=== PATIENT | male | born 1940 | race Caucasian/White ===

== ENCOUNTER 2022-07-11 19:44 | Inpatient (IN) | payer MEDICARE ==
[~2022-07-11] VITALS: Ht 177.8 cm; Wt 104.3 kg
[~2022-07-11 19:44] MED LIST: DORZOLAMIDE HCL10 ML OP; DORZOLAMIDE-TIM10 ML OP; LATANOPROST2.5 ML OP; LEVAQUIN500 MG PO; LOSARTAN-HCTZ1 EAC2 PO; SULFAMETHOXAZO1 EAC1 PO; VERAPAMIL ER240 M1 PO
[2022-07-11] MEDS ORDERED: SODIUM CHLORIDE 0.9% 1000ML 1,000 ML IV ONE (20:00)
[2022-07-11] MEDS ORDERED: PIPERACILLIN/TAZOBACTAM 4.5 GM in SODIUM CHLORIDE 0.9% 100 ML IV ONE (20:00)
[2022-07-11 20:06] LABS: BASOPHILS % 0.1 % (0.0-1.0); EOSINOPHILS # (AUTO) 0.2 (0.0-0.4); EOSINOPHILS % 1.1 % (0.0-6.0); HEMATOCRIT 31.3 % (38.2-49.6); HEMOGLOBIN 11.2 g/dL (14.0-18.0); LYMPHOCYTES # (AUTO) 0.5 (1.0-3.2); LYMPHOCYTES % 2.8 % (18.0-39.1); MEAN CORPUSCULAR HEMOGLOBIN 34.9 pg (28-32); MEAN CORPUSCULAR HGB CONC 35.8 g/dL (31-35); MEAN CORPUSCULAR VOLUME 97.5 fL (81-99); MONOCYTES # (AUTO) 1.2 (0.2-0.8); MONOCYTES % 6.5 % (4.4-11.3); NEUTROPHILS # (AUTO) 16.9 (2.1-6.9); NEUTROPHILS % 88.2 % (38.7-80.0); PLATELET COUNT 233 x10e3/uL (140-360); RED BLOOD COUNT 3.21 x10e6/uL (4.3-5.7); RED CELL DISTRIBUTION WIDTH 11.9 % (11.7-14.4)
[2022-07-11 20:20] LABS: INR 1.3; PROTHROMBIN TIME 17.3 seconds (11.9-14.5)
[2022-07-11 20:21] LABS: PARTIAL THROMBOPLASTIN TIME 37.2 seconds (23.8-35.5)
[2022-07-11 20:28] LABS: ALBUMIN 2.8 g/dL (3.5-5.0); ALBUMIN/GLOBULIN RATIO 0.7 (0.8-2.0); ANION GAP 16.5 mmol/L (8-16); CALCIUM 8.7 mg/dL (8.4-10.2); CREATININE, SERUM 1.39 mg/dL (0.72-1.25); POTASSIUM 3.5 mmol/L (3.5-5.1)
[2022-07-11] MEDS ORDERED: SODIUM CHLORIDE 0.9% 100 ML ONE (23:34)
[2022-07-11] MEDS ORDERED: PIPERACILLIN/TAZOBACTAM 4.5GM 4.5 GM VIAL ONE (23:34)
[2022-07-11] MEDS ORDERED: SODIUM CHLORIDE 0.9% 1000ML 1,000 ML ONE (23:34)
[2022-07-12 00:36] LABS: CLARITY,URINE CLEAR (CLEAR); COLOR,URINE AMBER (YELLOW); KETONES,URINE TRACE (NEGATIVE); LEUKOCYTE ESTERASE ,URINE NEGATIVE (NEGATIVE); NITRITE,URINE NEGATIVE (NEGATIVE); PROTEIN,URINE DIPSTICK NEGATIVE (NEGATIVE)
[2022-07-12 00:42] LABS: AMORPHOUS SEDIMENT,URINE FEW (FEW); BACTERIA,URINE FEW /HPF; EPITHELIAL CELLS,URINE FEW /LPF; RBC,URINE 0-5 /HPF (0-5); WBC,URINE (MAN) 0-5 /HPF (0-5)
[2022-07-12] MEDS ORDERED: IOPAMIDOL 370 MG/ML 100 ML INFUS..BTL INJ ONE (01:05)
[2022-07-12] MEDS ORDERED: Vancomycin IV 1 GM in SODIUM CHLORIDE 0.9% 250ML 250 ML IV STA (04:19)
[2022-07-12] MEDS ORDERED: ONDANSETRON HCL INJ 2MG/ML 2ML 2 MG/ML VIAL IV PRN (04:30)
[2022-07-12] MEDS ORDERED: Morphine 4mg INJECTION 4 MG/ML INJ IV PRN (04:30)
[2022-07-12] MEDS: SODIUM CHLORIDE 0.9% 1000ML 1,000 ML IV SCH ×3 (05:27→20:30)
[2022-07-12] MEDS ORDERED: Morphine 4mg INJECTION 4 MG/ML INJ ONE (12:24)
[2022-07-12 13:53] VITALS: BP 155/75
[2022-07-12] MEDS ORDERED: colace PO (13:57)
[2022-07-12] MEDS ORDERED: MULTIVITAMIN200 MCG PO (13:58)
[2022-07-12 14:02] VITALS: BP 155/75
[2022-07-12 14:03] VITALS: BP 155/75
[2022-07-12 14:15] VITALS: BP 155/75
[2022-07-12 16:08] VITALS: BP 126/54
[2022-07-12 20:00] VITALS: BP 133/55
[2022-07-12 21:58] LABS: % IRON SATURATION 17 % (15-50); IRON 39 ug/dL (65-175); TOTAL IRON BINDING CAPACITY 228 ug/dL (261-478); TRANSFERRIN 163 mg/dL (174-364)
[2022-07-12] MEDS ORDERED: MAGNESIUM HYDROXIDE 30 ML UDC PO ONE (22:45)
[2022-07-13] VITALS (7 sets, daily range): BP systolic 106–159; BP diastolic 55–75
[2022-07-13] MEDS: SODIUM CHLORIDE 0.9% 1000ML 1,000 ML IV SCH ×2 (04:30→12:49)
[2022-07-13 06:08] LABS: BASOPHILS # (AUTO) 0.1 (0.0-0.1); BASOPHILS % 0.4 % (0.0-1.0); EOSINOPHILS # (AUTO) 0.6 (0.0-0.4); EOSINOPHILS % 5.2 % (0.0-6.0); HEMATOCRIT 30.9 % (38.2-49.6); MEAN CORPUSCULAR HEMOGLOBIN 33.8 pg (28-32); MEAN CORPUSCULAR HGB CONC 35.6 g/dL (31-35); MEAN CORPUSCULAR VOLUME 95.1 fL (81-99); MONOCYTES # (AUTO) 1.8 (0.2-0.8); MONOCYTES % 16.1 % (4.4-11.3); NEUTROPHILS # (AUTO) 7.6 (2.1-6.9); NEUTROPHILS % 67.1 % (38.7-80.0); PLATELET COUNT 212 x10e3/uL (140-360); RED BLOOD COUNT 3.25 x10e6/uL (4.3-5.7); RED CELL DISTRIBUTION WIDTH 11.9 % (11.7-14.4)
[2022-07-13 06:37] LABS: ALBUMIN 2.4 g/dL (3.5-5.0); ALBUMIN/GLOBULIN RATIO 0.8 (0.8-2.0); CALCIUM 8.5 mg/dL (8.4-10.2); CREATININE, SERUM 0.78 mg/dL (0.72-1.25)
[2022-07-13] MEDS ORDERED: MAGNESIUM HYDROXIDE 30 ML UDC PO ONE (08:00)
[2022-07-13] MEDS: IRON SUCROSE 100 MG in SODIUM CHLORIDE 0.9% 100 ML IV SCH (09:00)
[2022-07-13] MEDS: FOLIC ACID 1 MG TAB PO SCH (09:00)
[2022-07-13] MEDS ORDERED: POTASSIUM CHLORIDE 20MEQ/100ML 100 ML IV ONE (12:00)
[2022-07-13] MEDS: LATANOPROST(OPTH) 2.5 ML BTL OP SCH (22:11)
[2022-07-13] MEDS: DORZOLAMIDE HCL (OPTH) 10 ML BOTTLE OP SCH (22:11)
[2022-07-14] VITALS (9 sets, daily range): BP systolic 156–192; BP diastolic 63–81
[2022-07-14] MEDS: SODIUM CHLORIDE 0.9% 1000ML 1,000 ML IV SCH (02:23)
[2022-07-14] MEDS ORDERED: POTASSIUM CHLORIDE 20 MEQ TAB CR PO ONE (08:16)
[2022-07-14] MEDS: IRON SUCROSE 100 MG in SODIUM CHLORIDE 0.9% 100 ML IV SCH (08:16)
[2022-07-14] MEDS: FOLIC ACID 1 MG TAB PO SCH (08:19)
[2022-07-14] MEDS ORDERED: LOSARTAN POTASSIUM 25 MG TAB PO SCH (09:00)
[2022-07-14] MEDS ORDERED: LIDOCAINE 4% PATCH TP SCH (09:00)
[2022-07-14] MEDS ORDERED: CALCIUM CARBONATE 500 MG CHEWABLE TABS PO PRN (11:00)
[2022-07-14 11:42] LABS: ANION GAP 18.5 mmol/L (8-16); CALCIUM 8.4 mg/dL (8.4-10.2); CREATININE, SERUM 0.74 mg/dL (0.72-1.25); MAGNESIUM 2.1 MG/DL (1.3-2.1); POTASSIUM 3.5 mmol/L (3.5-5.1)
[2022-07-14 11:56] LABS: BASOPHILS # (AUTO) 0.1 (0.0-0.1); BASOPHILS % 0.5 % (0.0-1.0); EOSINOPHILS # (AUTO) 0.1 (0.0-0.4); HEMATOCRIT 30.7 % (38.2-49.6); HEMOGLOBIN 11.2 g/dL (14.0-18.0); LYMPHOCYTES # (AUTO) 1.5 (1.0-3.2); LYMPHOCYTES % 14.1 % (18.0-39.1); MEAN CORPUSCULAR HEMOGLOBIN 34.7 pg (28-32); MEAN CORPUSCULAR HGB CONC 36.5 g/dL (31-35); MONOCYTES # (AUTO) 1.2 (0.2-0.8); MONOCYTES % 11.3 % (4.4-11.3); NEUTROPHILS # (AUTO) 7.4 (2.1-6.9); NEUTROPHILS % 67.3 % (38.7-80.0); PLATELET COUNT 210 x10e3/uL (140-360); RED BLOOD COUNT 3.23 x10e6/uL (4.3-5.7); RED CELL DISTRIBUTION WIDTH 11.9 % (11.7-14.4)
[2022-07-14 12:37] LABS: BAND NEUTROPHILS % (MANUAL) 1 %; EOSINOPHILS % (MANUAL) 1 % (0-7); LYMPHOCYTES % (MANUAL) 19 % (19-48); METAMYELOCYTES % (MANUAL) 4 % (0-0); MONOCYTES % (MANUAL) 7 % (3.4-9.0); MYELOCYTES % (MANUAL) 1 % (0-0); NEUTROPHILS % (MANUAL) 67 % (40-74); PLATELET ESTIMATE ADEQUATE; PLATELET MORPHOLOGY COMMENT NORMAL
[2022-07-14] MEDS: LOSARTAN POTASSIUM 25 MG TAB PO SCH (17:59)
[2022-07-14] MEDS ORDERED: RISPERIDONE 1 MG TAB PO ONE (21:00)
[2022-07-14] MEDS: ACETAMINOPHEN 325 MG TAB PO PRN (21:22)
[2022-07-14] MEDS: DORZOLAMIDE HCL (OPTH) 10 ML BOTTLE OP SCH (23:44)
[2022-07-14] MEDS: LATANOPROST(OPTH) 2.5 ML BTL OP SCH (23:44)
[2022-07-15] VITALS (8 sets, daily range): BP systolic 120–185; BP diastolic 56–77
[2022-07-15 06:18] LABS: BASOPHILS # (AUTO) 0.1 (0.0-0.1); BASOPHILS % 0.8 % (0.0-1.0); EOSINOPHILS # (AUTO) 0.2 (0.0-0.4); EOSINOPHILS % 1.7 % (0.0-6.0); HEMATOCRIT 31.5 % (38.2-49.6); HEMOGLOBIN 11.4 g/dL (14.0-18.0); LYMPHOCYTES # (AUTO) 1.6 (1.0-3.2); LYMPHOCYTES % 12.7 % (18.0-39.1); MEAN CORPUSCULAR HEMOGLOBIN 34.5 pg (28-32); MEAN CORPUSCULAR HGB CONC 36.2 g/dL (31-35); MEAN CORPUSCULAR VOLUME 95.5 fL (81-99); MONOCYTES # (AUTO) 1.4 (0.2-0.8); MONOCYTES % 11.4 % (4.4-11.3); NEUTROPHILS % 65.9 % (38.7-80.0); PLATELET COUNT 227 x10e3/uL (140-360); RED CELL DISTRIBUTION WIDTH 11.8 % (11.7-14.4)
[2022-07-15 06:41] LABS: ANION GAP 17.6 mmol/L (8-16); CALCIUM 8.8 mg/dL (8.4-10.2); CREATININE, SERUM 0.8 mg/dL (0.72-1.25); POTASSIUM 4.6 mmol/L (3.5-5.1)
[2022-07-15] MEDS: LOSARTAN POTASSIUM 25 MG TAB PO SCH ×2 (09:04→16:46)
[2022-07-15] MEDS: FOLIC ACID 1 MG TAB PO SCH (09:17)
[2022-07-15 10:38] LABS: CHOL/HDL RATIO 8.5 (3.9-4.7)
[2022-07-15] MEDS ORDERED: HYDRALAZINE HCL 20 MG/ML VIAL IV PRN (10:45)
[2022-07-15] MEDS ORDERED: LOSARTAN POTASSIUM 100 MG TAB PO SCH (10:45)
[2022-07-15] MEDS ORDERED: HYDROCHLOROTHIAZIDE 25 MG TAB PO SCH (10:45)
[2022-07-15 10:58] LABS: THYROID STIMULATING HORMONE 0.997 uIU/mL (0.350-4.940)
[2022-07-15] MEDS: IRON SUCROSE 100 MG in SODIUM CHLORIDE 0.9% 100 ML IV SCH (12:46)
[2022-07-15] MEDS: LATANOPROST(OPTH) 2.5 ML BTL OP SCH (21:00)
[2022-07-15] MEDS: DORZOLAMIDE HCL (OPTH) 10 ML BOTTLE OP SCH (21:00)
[2022-07-16] VITALS (8 sets, daily range): BP systolic 99–189; BP diastolic 60–104
[2022-07-16] MEDS: ACETAMINOPHEN 325 MG TAB PO PRN (03:30)
[2022-07-16 08:27] LABS: BASOPHILS # (AUTO) 0.1 (0.0-0.1); BASOPHILS % 0.7 % (0.0-1.0); EOSINOPHILS # (AUTO) 0.2 (0.0-0.4); EOSINOPHILS % 1.1 % (0.0-6.0); HEMATOCRIT 34.3 % (38.2-49.6); LYMPHOCYTES # (AUTO) 1.9 (1.0-3.2); LYMPHOCYTES % 11.5 % (18.0-39.1); MEAN CORPUSCULAR HEMOGLOBIN 34.2 pg (28-32); MEAN CORPUSCULAR VOLUME 97.7 fL (81-99); MONOCYTES # (AUTO) 1.8 (0.2-0.8); NEUTROPHILS % 67.6 % (38.7-80.0); PLATELET COUNT 230 x10e3/uL (140-360); RED BLOOD COUNT 3.51 x10e6/uL (4.3-5.7); RED CELL DISTRIBUTION WIDTH 11.6 % (11.7-14.4)
[2022-07-16 08:42] LABS: ANION GAP 17.3 mmol/L (8-16); CALCIUM 8.7 mg/dL (8.4-10.2); CREATININE, SERUM 0.76 mg/dL (0.72-1.25); PHOSPHORUS 2.8 MG/DL (2.3-4.7); POTASSIUM 3.3 mmol/L (3.5-5.1)
[2022-07-16] MEDS ORDERED: VERAPAMIL HCL 240 MG PO SCH (09:00)
[2022-07-16] MEDS: DOCUSATE SODIUM 100 MG CAP PO SCH (10:01)
[2022-07-16] MEDS: FOLIC ACID 1 MG TAB PO SCH (10:01)
[2022-07-16] MEDS: MULTIVITAMINS/MINERALS TAB PO SCH (10:01)
[2022-07-16] MEDS: LOSARTAN POTASSIUM 25 MG TAB PO SCH ×2 (10:01→15:23)
[2022-07-16] MEDS: METOPROLOL TARTRATE 25 MG TAB PO SCH ×2 (10:30→15:24)
[2022-07-16] MEDS ORDERED: POTASSIUM CHLORIDE 20 MEQ TAB CR PO SCH (10:30)
[2022-07-16] MEDS: IRON SUCROSE 100 MG in SODIUM CHLORIDE 0.9% 100 ML IV SCH (11:35)
[2022-07-16] MEDS ORDERED: POTASSIUM CHLORIDE 20MEQ/100ML 200 ML IV ONE (12:30)
[2022-07-16 18:02] LABS: ABG HCO3 21 mmol/L (22-26); ABG PCO2 28 mmHg (35-45); ABG PH 7.48 (7.35-7.45); ABG PO2 79 mmHg (80-105); ABG TCO2 22
[2022-07-16] MEDS: Vancomycin IV 1 GM in SODIUM CHLORIDE 0.9% 250ML 250 ML IV SCH (18:18)
[2022-07-16] MEDS ORDERED: LORAZEPAM INJ 2 MG/ML VIAL IV ONE (18:20)
[2022-07-16] MEDS: LATANOPROST(OPTH) 2.5 ML BTL OP SCH (20:48)
[2022-07-16] MEDS: DORZOLAMIDE HCL (OPTH) 10 ML BOTTLE OP SCH (20:48)
[2022-07-17] MEDS: Vancomycin IV 1 GM in SODIUM CHLORIDE 0.9% 250ML 250 ML IV SCH (05:30)
[2022-07-17 05:55] LABS: BASOPHILS # (AUTO) 0.1 (0.0-0.1); BASOPHILS % 0.8 % (0.0-1.0); EOSINOPHILS # (AUTO) 0.3 (0.0-0.4); HEMATOCRIT 32.6 % (38.2-49.6); HEMOGLOBIN 11.5 g/dL (14.0-18.0); LYMPHOCYTES # (AUTO) 2.1 (1.0-3.2); LYMPHOCYTES % 12.1 % (18.0-39.1); MEAN CORPUSCULAR HEMOGLOBIN 34.1 pg (28-32); MEAN CORPUSCULAR HGB CONC 35.3 g/dL (31-35); MEAN CORPUSCULAR VOLUME 96.7 fL (81-99); MONOCYTES # (AUTO) 1.9 (0.2-0.8); MONOCYTES % 10.9 % (4.4-11.3); NEUTROPHILS # (AUTO) 11.3 (2.1-6.9); NEUTROPHILS % 66.3 % (38.7-80.0); PLATELET COUNT 242 x10e3/uL (140-360); RED BLOOD COUNT 3.37 x10e6/uL (4.3-5.7)
[2022-07-17 06:00] VITALS: BP 130/101
[2022-07-17 06:20] LABS: ANION GAP 14.4 mmol/L (8-16); CALCIUM 8.6 mg/dL (8.4-10.2); CREATININE, SERUM 0.74 mg/dL (0.72-1.25); MAGNESIUM 1.9 MG/DL (1.3-2.1); PHOSPHORUS 3.4 MG/DL (2.3-4.7); POTASSIUM 3.4 mmol/L (3.5-5.1)
[2022-07-17] MEDS: METOPROLOL TARTRATE 25 MG TAB PO SCH ×2 (09:00→17:00)
[2022-07-17] MEDS: MULTIVITAMINS/MINERALS TAB PO SCH (09:00)
[2022-07-17] MEDS: DOCUSATE SODIUM 100 MG CAP PO SCH (09:00)
[2022-07-17] MEDS: FOLIC ACID 1 MG TAB PO SCH (09:00)
[2022-07-17 09:13] VITALS: BP 104/87
[2022-07-17] MEDS ORDERED: D5.45%NS/KCL 20MEQ 1,000 ML IV ONE (10:00)
[2022-07-17] MEDS: CEFTRIAXONE 2 GM in SODIUM CHLORIDE 0.9% 100 ML IV SCH (10:00)
[2022-07-17] MEDS: POTASSIUM CHLORIDE 20MEQ/100ML 100 ML IV SCH ×3 (11:00→15:00)
[2022-07-17] MEDS ORDERED: MAGNESIUM SULFATE 2GM/50ML 50 ML IV ONE (11:00)
[2022-07-17] MEDS: IRON SUCROSE 100 MG in SODIUM CHLORIDE 0.9% 100 ML IV SCH (11:21)
[2022-07-17 12:38] VITALS: BP 171/64
[2022-07-17] MEDS: METRONIDAZOLE 500 MG TAB PO SCH ×2 (16:15→21:34)
[2022-07-17 16:16] VITALS: BP 157/66
[2022-07-17] MEDS: NYSTATIN/TRIAMCINOLONE 15 GM CR TOP SCH (17:50)
[2022-07-17] MEDS ORDERED: ONDANSETRON HCL 4 MG ORAL DISINTEGRATING TAB PO PRN (19:30)
[2022-07-17 20:00] VITALS: BP 151/64
[2022-07-17 21:00] VITALS: BP 151/64
[2022-07-17] MEDS: DORZOLAMIDE HCL (OPTH) 10 ML BOTTLE OP SCH (21:34)
[2022-07-17] MEDS: LATANOPROST(OPTH) 2.5 ML BTL OP SCH (21:34)
[2022-07-18 05:52] LABS: BASOPHILS # (AUTO) 0.1 (0.0-0.1); BASOPHILS % 0.5 % (0.0-1.0); EOSINOPHILS # (AUTO) 0.6 (0.0-0.4); EOSINOPHILS % 3.6 % (0.0-6.0); HEMATOCRIT 32.6 % (38.2-49.6); HEMOGLOBIN 10.9 g/dL (14.0-18.0); LYMPHOCYTES # (AUTO) 1.8 (1.0-3.2); LYMPHOCYTES % 10.5 % (18.0-39.1); MEAN CORPUSCULAR HEMOGLOBIN 33.7 pg (28-32); MEAN CORPUSCULAR HGB CONC 33.4 g/dL (31-35); MEAN CORPUSCULAR VOLUME 100.9 fL (81-99); MONOCYTES # (AUTO) 1.7 (0.2-0.8); MONOCYTES % 10.1 % (4.4-11.3); NEUTROPHILS % 70.3 % (38.7-80.0); PLATELET COUNT 227 x10e3/uL (140-360); RED BLOOD COUNT 3.23 x10e6/uL (4.3-5.7); RED CELL DISTRIBUTION WIDTH 12.1 % (11.7-14.4)
[2022-07-18] MEDS: METRONIDAZOLE 500 MG TAB PO SCH ×3 (06:32→20:29)
[2022-07-18 06:37] LABS: ANION GAP 12.2 mmol/L (8-16); CALCIUM 8.2 mg/dL (8.4-10.2); CREATININE, SERUM 0.69 mg/dL (0.72-1.25); MAGNESIUM 2.5 MG/DL (1.3-2.1); PHOSPHORUS 2.5 MG/DL (2.3-4.7); POTASSIUM 3.2 mmol/L (3.5-5.1)
[2022-07-18 08:51] VITALS: BP 154/79
[2022-07-18] MEDS: METOPROLOL TARTRATE 25 MG TAB PO SCH ×2 (09:00→17:00)
[2022-07-18] MEDS: LOSARTAN POTASSIUM 25 MG TAB PO SCH (09:00)
[2022-07-18] MEDS: DOCUSATE SODIUM 100 MG CAP PO SCH (09:00)
[2022-07-18] MEDS: NYSTATIN/TRIAMCINOLONE 15 GM CR TOP SCH ×2 (09:00→17:00)
[2022-07-18] MEDS: MULTIVITAMINS/MINERALS TAB PO SCH (09:00)
[2022-07-18] MEDS: FOLIC ACID 1 MG TAB PO SCH (09:00)
[2022-07-18] MEDS: CEFTRIAXONE 2 GM in SODIUM CHLORIDE 0.9% 100 ML IV SCH (10:00)
[2022-07-18] MEDS: POTASSIUM CHLORIDE 20 MEQ TAB CR PO SCH ×2 (12:00→18:00)
[2022-07-18 12:18] VITALS: BP 148/74
[2022-07-18 16:46] VITALS: BP 155/62
[2022-07-18 20:15] VITALS: BP 148/74
[2022-07-18] MEDS: LATANOPROST(OPTH) 2.5 ML BTL OP SCH (20:29)
[2022-07-18] MEDS: DORZOLAMIDE HCL (OPTH) 10 ML BOTTLE OP SCH (20:29)
[2022-07-19] VITALS: BP 160/71
[2022-07-19 06:31] LABS: BASOPHILS # (AUTO) 0.1 (0.0-0.1); BASOPHILS % 0.4 % (0.0-1.0); EOSINOPHILS # (AUTO) 0.4 (0.0-0.4); EOSINOPHILS % 3.1 % (0.0-6.0); HEMOGLOBIN 10.8 g/dL (14.0-18.0); LYMPHOCYTES # (AUTO) 1.7 (1.0-3.2); LYMPHOCYTES % 12.5 % (18.0-39.1); MEAN CORPUSCULAR HEMOGLOBIN 34.6 pg (28-32); MEAN CORPUSCULAR HGB CONC 33.8 g/dL (31-35); MEAN CORPUSCULAR VOLUME 102.6 fL (81-99); MONOCYTES # (AUTO) 1.4 (0.2-0.8); MONOCYTES % 10.3 % (4.4-11.3); NEUTROPHILS # (AUTO) 9.7 (2.1-6.9); NEUTROPHILS % 70.3 % (38.7-80.0); PLATELET COUNT 208 x10e3/uL (140-360); RED BLOOD COUNT 3.12 x10e6/uL (4.3-5.7); RED CELL DISTRIBUTION WIDTH 12.6 % (11.7-14.4)
[2022-07-19] MEDS: METRONIDAZOLE 500 MG TAB PO SCH ×2 (06:39→16:41)
[2022-07-19 06:51] LABS: ANION GAP 11.7 mmol/L (8-16); CALCIUM 8.2 mg/dL (8.4-10.2); CREATININE, SERUM 0.73 mg/dL (0.72-1.25); POTASSIUM 3.7 mmol/L (3.5-5.1)
[2022-07-19 07:53] VITALS: BP 162/75
[2022-07-19 08:59] VITALS: BP 162/75
[2022-07-19] MEDS: DOCUSATE SODIUM 100 MG CAP PO SCH (09:00)
[2022-07-19] MEDS: LOSARTAN POTASSIUM 25 MG TAB PO SCH (09:26)
[2022-07-19] MEDS: FOLIC ACID 1 MG TAB PO SCH (09:26)
[2022-07-19] MEDS: MULTIVITAMINS/MINERALS TAB PO SCH (09:26)
[2022-07-19] MEDS: CEFTRIAXONE 2 GM in SODIUM CHLORIDE 0.9% 100 ML IV SCH (09:27)
[2022-07-19] MEDS: METOPROLOL TARTRATE 25 MG TAB PO SCH ×2 (09:27→16:42)
[2022-07-19 11:25] VITALS: BP 155/71
[2022-07-19 15:20] VITALS: BP 158/70
[2022-07-19 20:00] VITALS: BP 169/71
[2022-07-19] MEDS: DORZOLAMIDE HCL (OPTH) 10 ML BOTTLE OP SCH (21:00)
[2022-07-19] MEDS: LATANOPROST(OPTH) 2.5 ML BTL OP SCH (21:00)
[2022-07-20] VITALS: BP 162/68
[2022-07-20] MEDS: METRONIDAZOLE 500 MG TAB PO SCH ×4 (01:03→21:55)
[2022-07-20 04:00] VITALS: BP 153/68
[2022-07-20 06:33] LABS: BASOPHILS # (AUTO) 0.1 (0.0-0.1); BASOPHILS % 0.3 % (0.0-1.0); EOSINOPHILS # (AUTO) 0.4 (0.0-0.4); EOSINOPHILS % 2.9 % (0.0-6.0); HEMATOCRIT 31.5 % (38.2-49.6); HEMOGLOBIN 10.9 g/dL (14.0-18.0); LYMPHOCYTES # (AUTO) 1.6 (1.0-3.2); LYMPHOCYTES % 10.3 % (18.0-39.1); MEAN CORPUSCULAR HEMOGLOBIN 34.7 pg (28-32); MEAN CORPUSCULAR HGB CONC 34.6 g/dL (31-35); MEAN CORPUSCULAR VOLUME 100.3 fL (81-99); MONOCYTES # (AUTO) 1.3 (0.2-0.8); MONOCYTES % 8.8 % (4.4-11.3); NEUTROPHILS # (AUTO) 11.4 (2.1-6.9); PLATELET COUNT 203 x10e3/uL (140-360); RED BLOOD COUNT 3.14 x10e6/uL (4.3-5.7); RED CELL DISTRIBUTION WIDTH 12.9 % (11.7-14.4)
[2022-07-20 06:44] LABS: ANION GAP 15.6 mmol/L (8-16); CALCIUM 8.1 mg/dL (8.4-10.2); CREATININE, SERUM 0.71 mg/dL (0.72-1.25); POTASSIUM 3.6 mmol/L (3.5-5.1)
[2022-07-20 07:43] VITALS: BP 144/80
[2022-07-20] MEDS ORDERED: BACLOFEN 10 MG TAB PO PRN (09:00)
[2022-07-20] MEDS: METOPROLOL TARTRATE 25 MG TAB PO SCH ×2 (09:39→17:53)
[2022-07-20] MEDS: FOLIC ACID 1 MG TAB PO SCH (09:39)
[2022-07-20] MEDS: MULTIVITAMINS/MINERALS TAB PO SCH (09:39)
[2022-07-20] MEDS: DOCUSATE SODIUM 100 MG CAP PO SCH (09:40)
[2022-07-20] MEDS: CEFTRIAXONE 2 GM in SODIUM CHLORIDE 0.9% 100 ML IV SCH (09:40)
[2022-07-20] MEDS: LOSARTAN POTASSIUM 25 MG TAB PO SCH (09:40)
[2022-07-20] MEDS: IRON-VITAMIN-MINERAL CAPSULE PO SCH ×2 (09:50→17:52)
[2022-07-20 11:13] VITALS: BP 151/63
[2022-07-20 15:33] VITALS: BP 148/65
[2022-07-20] MEDS: ENOXAPARIN SOD INJ 40 MG/0.4 ML SYR SC SCH (17:52)
[2022-07-20 20:00] VITALS: BP 162/70
[2022-07-20] MEDS: DORZOLAMIDE HCL (OPTH) 10 ML BOTTLE OP SCH (21:59)
[2022-07-20] MEDS: LATANOPROST(OPTH) 2.5 ML BTL OP SCH (22:00)
[2022-07-21 00:17] VITALS: BP 161/58
[2022-07-21 04:00] VITALS: BP 151/62
[2022-07-21] MEDS: METRONIDAZOLE 500 MG TAB PO SCH ×3 (05:31→16:44)
[2022-07-21 06:38] LABS: BASOPHILS # (AUTO) 0.1 (0.0-0.1); BASOPHILS % 0.6 % (0.0-1.0); EOSINOPHILS # (AUTO) 0.5 (0.0-0.4); EOSINOPHILS % 4.2 % (0.0-6.0); HEMATOCRIT 31.1 % (38.2-49.6); HEMOGLOBIN 10.6 g/dL (14.0-18.0); LYMPHOCYTES # (AUTO) 1.4 (1.0-3.2); LYMPHOCYTES % 12.6 % (18.0-39.1); MEAN CORPUSCULAR HEMOGLOBIN 33.9 pg (28-32); MEAN CORPUSCULAR HGB CONC 34.1 g/dL (31-35); MEAN CORPUSCULAR VOLUME 99.4 fL (81-99); MONOCYTES # (AUTO) 1.1 (0.2-0.8); MONOCYTES % 10.4 % (4.4-11.3); NEUTROPHILS # (AUTO) 7.7 (2.1-6.9); NEUTROPHILS % 71.1 % (38.7-80.0); PLATELET COUNT 217 x10e3/uL (140-360); RED BLOOD COUNT 3.13 x10e6/uL (4.3-5.7); RED CELL DISTRIBUTION WIDTH 12.9 % (11.7-14.4)
[2022-07-21 06:53] LABS: ALBUMIN 2.2 g/dL (3.5-5.0); ALBUMIN/GLOBULIN RATIO 0.6 (0.8-2.0); ANION GAP 12.4 mmol/L (8-16); CALCIUM 8.3 mg/dL (8.4-10.2); CREATININE, SERUM 0.75 mg/dL (0.72-1.25); MAGNESIUM 2.1 MG/DL (1.3-2.1); POTASSIUM 3.4 mmol/L (3.5-5.1)
[2022-07-21] MEDS ORDERED: POTASSIUM CHLORIDE 10MEQ EA PO ONE (07:30)
[2022-07-21 08:00] VITALS: BP 151/62
[2022-07-21 08:31] VITALS: BP 137/60
[2022-07-21] MEDS: IRON-VITAMIN-MINERAL CAPSULE PO SCH ×2 (09:00→17:00)
[2022-07-21] MEDS: DOCUSATE SODIUM 100 MG CAP PO SCH (09:00)
[2022-07-21] MEDS: FOLIC ACID 1 MG TAB PO SCH (09:36)
[2022-07-21] MEDS: MULTIVITAMINS/MINERALS TAB PO SCH (09:37)
[2022-07-21] MEDS: METOPROLOL TARTRATE 25 MG TAB PO SCH ×2 (09:37→16:45)
[2022-07-21] MEDS: LOSARTAN POTASSIUM 25 MG TAB PO SCH (09:38)
[2022-07-21] MEDS: CEFTRIAXONE 2 GM in SODIUM CHLORIDE 0.9% 100 ML IV SCH (09:38)
[2022-07-21 15:15] VITALS: BP 159/60
[2022-07-21] MEDS: ENOXAPARIN SOD INJ 40 MG/0.4 ML SYR SC SCH (16:44)
[2022-07-21 20:00] VITALS: BP 160/60
[2022-07-21] MEDS: DORZOLAMIDE HCL (OPTH) 10 ML BOTTLE OP SCH (23:01)
[2022-07-21] MEDS: LATANOPROST(OPTH) 2.5 ML BTL OP SCH (23:01)
[2022-07-22 04:00] VITALS: BP 152/81
[2022-07-22] MEDS: METRONIDAZOLE 500 MG TAB PO SCH ×2 (05:13→14:17)
[2022-07-22 06:18] LABS: BASOPHILS # (AUTO) 0.1 (0.0-0.1); BASOPHILS % 0.6 % (0.0-1.0); EOSINOPHILS # (AUTO) 0.5 (0.0-0.4); EOSINOPHILS % 5.2 % (0.0-6.0); HEMOGLOBIN 10.7 g/dL (14.0-18.0); LYMPHOCYTES # (AUTO) 1.2 (1.0-3.2); LYMPHOCYTES % 13.7 % (18.0-39.1); MEAN CORPUSCULAR HEMOGLOBIN 34.2 pg (28-32); MEAN CORPUSCULAR HGB CONC 34.5 g/dL (31-35); MONOCYTES # (AUTO) 1.1 (0.2-0.8); MONOCYTES % 12.5 % (4.4-11.3); NEUTROPHILS % 67.1 % (38.7-80.0); PLATELET COUNT 237 x10e3/uL (140-360); RED BLOOD COUNT 3.13 x10e6/uL (4.3-5.7); RED CELL DISTRIBUTION WIDTH 12.8 % (11.7-14.4)
[2022-07-22 06:44] LABS: ANION GAP 16.2 mmol/L (8-16); CALCIUM 8.1 mg/dL (8.4-10.2); CREATININE, SERUM 0.71 mg/dL (0.72-1.25); MAGNESIUM 2.2 MG/DL (1.3-2.1); POTASSIUM 3.2 mmol/L (3.5-5.1)
[2022-07-22 07:58] VITALS: BP 167/66
[2022-07-22] MEDS: LOSARTAN POTASSIUM 25 MG TAB PO SCH (08:29)
[2022-07-22] MEDS: MULTIVITAMINS/MINERALS TAB PO SCH (08:29)
[2022-07-22] MEDS: CEFTRIAXONE 2 GM in SODIUM CHLORIDE 0.9% 100 ML IV SCH (08:29)
[2022-07-22] MEDS: DOCUSATE SODIUM 100 MG CAP PO SCH (08:29)
[2022-07-22] MEDS: IRON-VITAMIN-MINERAL CAPSULE PO SCH ×2 (08:30→17:16)
[2022-07-22] MEDS: METOPROLOL TARTRATE 25 MG TAB PO SCH ×2 (08:30→17:16)
[2022-07-22] MEDS: FOLIC ACID 1 MG TAB PO SCH (08:30)
[2022-07-22 12:27] VITALS: BP 163/65
[2022-07-22] MEDS ORDERED: POTASSIUM CHLORIDE 20 MEQ TAB CR PO ONE (12:45)
[2022-07-22 16:39] VITALS: BP 137/68
[2022-07-22] MEDS: ENOXAPARIN SOD INJ 40 MG/0.4 ML SYR SC SCH (17:16)
[2022-07-23] MEDS ORDERED: PANTOPRAZOLE SOD 40 MG TABEC PO SCH (07:30)
== END 2022-07-22 20:32 | DRG 871 ==
LOC: ER 19:55 → ERHOLD 07-12 04:20 → MED/SURG2 07-12 13:12
PROVIDERS: ADMIT Internal Medicine; ATTEND Internal Medicine
PROC: 3E03329 Introduction of Other Anti-infective into Peripheral Vein, Percutaneous Approach (ICD-10-PCS; principal; 2022-07-12)
PROC: 02HV33Z Insertion of Infusion Device into Superior Vena Cava, Percutaneous Approach (ICD-10-PCS; 2022-07-16)
DX: A41.59 Other Gram-negative sepsis (principal); G92.8 Other toxic encephalopathy; G93.41 Metabolic encephalopathy; N17.9 Acute kidney failure, unspecified; M48.56XA Collapsed vertebra, not elsewhere classified, lumbar region, initial encounter for fracture; I50.32 Chronic diastolic (congestive) heart failure; Z16.24 Resistance to multiple antibiotics; E87.1 Hypo-osmolality and hyponatremia; I47.1 Supraventricular tachycardia; D62 Acute posthemorrhagic anemia; I07.9 Rheumatic tricuspid valve disease, unspecified; I11.0 Hypertensive heart disease with heart failure; F03.90 Unspecified dementia, unspecified severity, without behavioral disturbance, psychotic disturbance, mood disturbance, and anxiety; E80.6 Other disorders of bilirubin metabolism; E87.6 Hypokalemia; D50.9 Iron deficiency anemia, unspecified; Z89.411 Acquired absence of right great toe; Z89.421 Acquired absence of other right toe(s); K57.90 Diverticulosis of intestine, part unspecified, without perforation or abscess without bleeding; I45.9 Conduction disorder, unspecified; K80.20 Calculus of gallbladder without cholecystitis without obstruction; R00.1 Bradycardia, unspecified; R29.810 Facial weakness; R47.81 Slurred speech; S60.221A Contusion of right hand, initial encounter; G62.9 Polyneuropathy, unspecified; Z89.422 Acquired absence of other left toe(s); T40.2X5A Adverse effect of other opioids, initial encounter; T43.595A Adverse effect of other antipsychotics and neuroleptics, initial encounter; Y92.230 Patient room in hospital as the place of occurrence of the external cause; R21 Rash and other nonspecific skin eruption; I35.0 Nonrheumatic aortic (valve) stenosis; B99.8 Other infectious disease
CPT/HCPCS: 36415; 36569; 36600; 70450; 71045; 72148; 74177; 78227; 80048; 80053; 80061; 81001; 82140; 82270; 82607; 82746; 82805; 83540; 83605; 83735; 84100; 84443; 84466; 85025; 85045; 85610; 85730; 87040; 87071; 87186; 87205; 93306; 96361; 99251; 99284; A9537; J0360; J0696; J1650; J1756; J2270; J2405; J2543; J3370; J3475; J3480; J7030; J7050; Q9967

== ENCOUNTER 2025-08-12 11:56 | Inpatient (IN) | payer MEDICARE ==
[~2025-08-12] VITALS: Ht 177.8 cm; Wt 73.5 kg
[~2025-08-12 11:56] MED LIST changes: +MULTIVITAMIN200 MCG PO; +colace PO
[2025-08-12 13:34] LABS: BASOPHILS % 0.4 % (0.0-1.0); EOSINOPHILS % 2.9 % (0.0-6.0); LYMPHOCYTES % 34.4 % (18.0-39.1); MONOCYTES % 27.5 % (4.4-11.3); NEUTROPHILS % 34.8 % (38.7-80.0); RED CELL DISTRIBUTION WIDTH 15.8 % (11.7-14.4)
[2025-08-12 13:55] LABS: INR 11.37
[2025-08-12 13:57] LABS: EST GLOMERULAR FILTRATION RATE 46.0 ML/MIN (>=60)
[2025-08-12] MEDS ORDERED: ONDANSETRON HCL INJ 2MG/ML 2ML 2 MG/ML VIAL IV PRN (15:15)
[2025-08-12] MEDS: SODIUM CHLORIDE 0.9% 500ML 500 ML IV ONE (15:52)
[2025-08-12] MEDS: PHYTONADIONE 10 MG/ML AMP PO ONE (15:52)
[2025-08-12 17:40] VITALS: PULSE 71; RESP 18; TEMP 98.3
[2025-08-12 18:08] VITALS: BP 117/56; PULSE 71; RESP 20; TEMP 97.4
[2025-08-12] MEDS: SODIUM CHLORIDE 0.9% 1000ML 1,000 ML IV SCH (18:47)
[2025-08-12 19:45] VITALS: BP 107/57; PULSE 71; RESP 20; TEMP 99; O2SAT 97
[2025-08-12] MEDS ORDERED: ACETAMINOPHEN 325 MG TAB PO PRN (19:45)
[2025-08-12 20:00] VITALS: BP 107/57; PULSE 71; RESP 20; TEMP 99; O2SAT 97
[2025-08-12 22:38] LABS: LEUKOCYTE ESTERASE ,URINE NEGATIVE (NEGATIVE)
[2025-08-12 22:39] LABS: PROTEIN,URINE DIPSTICK NEGATIVE (NEGATIVE); URINE UROBILINOGEN 1 mg/dL (0.2 - 1)
[2025-08-12 22:54] LABS: EPITHELIAL CELLS,URINE FEW /LPF; OTHER CRYSTALS,URINE PRESENT
[2025-08-13] VITALS: BP 121/66; PULSE 94; RESP 21; TEMP 99.1; O2SAT 100
[2025-08-13 04:00] VITALS: BP 105/45; PULSE 76; RESP 18; TEMP 98.1; O2SAT 97
[2025-08-13 07:42] VITALS: BP 110/52; PULSE 72; RESP 14; TEMP 98.1
[2025-08-13 07:43] LABS: BASOPHILS % 0.0 % (0.0-1.0); EOSINOPHILS % 0.0 % (0.0-6.0); LYMPHOCYTES % 29.6 % (18.0-39.1); MONOCYTES % 27.4 % (4.4-11.3); NEUTROPHILS % 42.6 % (38.7-80.0); RED CELL DISTRIBUTION WIDTH 16.0 % (11.7-14.4)
[2025-08-13] MEDS ORDERED: FEROSUL325 MG PO (08:14)
[2025-08-13] MEDS ORDERED: FLOMAX0.4 MG PO (08:14)
[2025-08-13] MEDS ORDERED: PANTOPRAZOLE SO20 MG PO (08:14)
[2025-08-13] MEDS ORDERED: WARFARIN SODIUM3 MG PO (08:14)
[2025-08-13] MEDS ORDERED: FUROSEMIDE40 MG PO (08:14)
[2025-08-13] MEDS ORDERED: ASPIRIN81 MG PO (08:14)
[2025-08-13] MEDS ORDERED: CARVEDILOL12.5 MG PO (08:14)
[2025-08-13 08:17] LABS: EST GLOMERULAR FILTRATION RATE 52.0 ML/MIN (>=60)
[2025-08-13] MEDS ORDERED: LACTULOSE SYRUP 20 GM/30 ML UDC PO PRN (10:30)
[2025-08-13 11:15] LABS: LYMPHOCYTES % (MANUAL) 29 % (19-48); MONOCYTES % (MANUAL) 21 % (3.4-9.0); NEUTROPHILS % (MANUAL) 47 % (40-74); PLATELET ESTIMATE ADEQUATE; PLATELET MORPHOLOGY COMMENT NORMAL; REACTIVE LYMPHOCYTES 3
[2025-08-13] MEDS: ASPIRIN 81 MG CHEW TAB PO SCH (11:16)
[2025-08-13] MEDS: PANTOPRAZOLE SOD 40 MG TABEC PO ONE (11:16)
[2025-08-13] MEDS: LATANOPROST(OPTH) 2.5 ML BTL OP SCH (11:26)
[2025-08-13] MEDS: Vancomycin IV 1 GM in SODIUM CHLORIDE 0.9% 250ML 250 ML IV SCH (13:25)
[2025-08-13 16:25] VITALS: BP 103/57; PULSE 78; RESP 16; TEMP 97.3; O2SAT 97
[2025-08-13] MEDS: CARVEDILOL 12.5 MG TAB PO SCH (16:59)
[2025-08-13] MEDS: SODIUM CHLORIDE 0.9% 1000ML 1,000 ML IV SCH (19:30)
[2025-08-13 20:00] VITALS: BP 107/46; PULSE 67; RESP 20; TEMP 98.6; O2SAT 96
[2025-08-13] MEDS: DORZOLAMIDE HCL (OPTH) 10 ML BOTTLE OP SCH (20:31)
[2025-08-13] MEDS: TAMSULOSIN HCL 0.4 MG CAP PO SCH (20:31)
[2025-08-13 21:14] VITALS: BP 107/46; PULSE 67; RESP 20; TEMP 98.6; O2SAT 96
[2025-08-14] VITALS (9 sets, daily range): BP systolic 89–107; BP diastolic 45–53; PULSE 54–89; RESP 18–20; TEMP 97.6–98.4; O2SAT 97–100
[2025-08-14] MEDS: BISACODYL 5 MG TAB EC PO ONE ×3 (05:53)
[2025-08-14 08:16] LABS: INR 1.49
[2025-08-14 08:23] LABS: % IRON SATURATION 17 % (15-50)
[2025-08-14] MEDS: FUROSEMIDE 40 MG TAB PO SCH (09:00)
[2025-08-14] MEDS: MAGNESIUM HYDROXIDE 30 ML UDC PO ONE ×2 (12:29→15:13)
[2025-08-14 15:36] LABS: BASOPHILS % 0.4 % (0.0-1.0); EOSINOPHILS % 5.8 % (0.0-6.0); LYMPHOCYTES % 40.3 % (18.0-39.1); MONOCYTES % 30.6 % (4.4-11.3); NEUTROPHILS % 22.5 % (38.7-80.0); RED CELL DISTRIBUTION WIDTH 16.3 % (11.7-14.4)
[2025-08-14 15:53] LABS: EST GLOMERULAR FILTRATION RATE 74.0 ML/MIN (>=60)
[2025-08-14] MEDS: MIDODRINE 2.5 MG TAB PO SCH (16:12)
[2025-08-15] VITALS (8 sets, daily range): BP systolic 104–136; BP diastolic 46–61; PULSE 57–75; RESP 14–20; TEMP 97.5–98.8; O2SAT 95–100
[2025-08-15 05:37] LABS: BASOPHILS % 0.4 % (0.0-1.0); EOSINOPHILS % 5.5 % (0.0-6.0); LYMPHOCYTES % 34.9 % (18.0-39.1); MONOCYTES % 27.7 % (4.4-11.3); NEUTROPHILS % 31.1 % (38.7-80.0); RED CELL DISTRIBUTION WIDTH 16.1 % (11.7-14.4)
[2025-08-15 06:33] LABS: EST GLOMERULAR FILTRATION RATE 88.0 ML/MIN (>=60)
[2025-08-15 09:33] LABS: EOSINOPHILS % (MANUAL) 4 % (0-7); LYMPHOCYTES % (MANUAL) 18 % (19-48); MONOCYTES % (MANUAL) 25 % (3.4-9.0); NEUTROPHILS % (MANUAL) 53 % (40-74)
[2025-08-15] MEDS: IRON SUCROSE 100 MG in SODIUM CHLORIDE 0.9% 100 ML IV SCH (09:33)
[2025-08-15 09:34] LABS: PLATELET ESTIMATE ADEQUATE; PLATELET MORPHOLOGY COMMENT NORMAL
[2025-08-15] MEDS ORDERED: IOPAMIDOL 370 MG/ML 100 ML INFUS..BTL INJ ONE (09:54)
[2025-08-15] MEDS: Ampicillin INJ 2 GM in SODIUM CHLORIDE 0.9% 100 ML IV SCH (12:23)
[2025-08-15] MEDS: CEFTRIAXONE 2 GM in SODIUM CHLORIDE 0.9% 100 ML IV SCH (13:50)
[2025-08-16] VITALS (8 sets, daily range): BP systolic 101–118; BP diastolic 48–58; PULSE 55–64; RESP 17–21; TEMP 97.8–98.6; O2SAT 96–100
[2025-08-16] MEDS ORDERED: CEFTRIAXONE 2 GM in SODIUM CHLORIDE 0.9% 100 ML IV SCH (09:00)
[2025-08-17] VITALS (7 sets, daily range): BP systolic 103–136; BP diastolic 50–67; PULSE 56–79; RESP 16–20; TEMP 97.6–98.3; O2SAT 95–100
[2025-08-17 06:34] LABS: INR 1.33
[2025-08-18] VITALS (7 sets, daily range): BP systolic 128–139; BP diastolic 58–74; PULSE 67–88; RESP 16–20; TEMP 97.6–98.7; O2SAT 98–100
[2025-08-18 06:34] LABS: BASOPHILS % 0.5 % (0.0-1.0); EOSINOPHILS % 9.3 % (0.0-6.0); LYMPHOCYTES % 33.2 % (18.0-39.1); MONOCYTES % 25.9 % (4.4-11.3); NEUTROPHILS % 31.1 % (38.7-80.0); RED CELL DISTRIBUTION WIDTH 16.6 % (11.7-14.4)
[2025-08-18 07:08] LABS: EST GLOMERULAR FILTRATION RATE 91.0 ML/MIN (>=60)
[2025-08-18 09:10] LABS: BAND NEUTROPHILS % (MANUAL) 5 %; LYMPHOCYTES % (MANUAL) 31 % (19-48); MONOCYTES % (MANUAL) 6 % (3.4-9.0); NEUTROPHILS % (MANUAL) 58 % (40-74); PLATELET ESTIMATE ADEQUATE; PLATELET MORPHOLOGY COMMENT NORMAL; RBC MORPHOLOGY COMMENT NORMAL
[2025-08-18] MEDS ORDERED: IOPAMIDOL 370 MG/ML 100 ML INFUS..BTL INJ ONE (11:55)
[2025-08-18] MEDS: DAPTOMYCIN IV SCH (12:16)
[2025-08-18] MEDS: SODIUM CHLORIDE 0.9% IV SCH (12:16)
[2025-08-19] VITALS: BP 122/63; PULSE 66; RESP 20; TEMP 97.4; O2SAT 99
[2025-08-19 04:00] VITALS: BP 135/58; PULSE 70; RESP 18; TEMP 97.6; O2SAT 99
[2025-08-19 08:10] VITALS: BP 149/57; PULSE 66; RESP 18; TEMP 97.8; O2SAT 99
[2025-08-19 12:00] VITALS: BP 136/68; PULSE 82; RESP 16; TEMP 98.2; O2SAT 95
[2025-08-19] MEDS ORDERED: COREG3.125 MG PO (14:28)
[2025-08-19 16:00] VITALS: BP 145/56; PULSE 70; RESP 16; TEMP 97.7; O2SAT 100
== END 2025-08-19 17:25 | disposition home health service (06) | DRG 288 ==
LOC: ER 12:52 → ERHOLD 15:12 → MED/SURG3 18:06
PROVIDERS: ADMIT Internal Medicine; ATTEND Internal Medicine
PROC: 0T9B70Z Drainage of Bladder with Drainage Device, Via Natural or Artificial Opening (ICD-10-PCS; 2025-08-13)
PROC: 02HV33Z Insertion of Infusion Device into Superior Vena Cava, Percutaneous Approach (ICD-10-PCS; principal; 2025-08-18)
DX: I33.9 Acute and subacute endocarditis, unspecified (principal); E43 Unspecified severe protein-calorie malnutrition; I13.0 Hypertensive heart and chronic kidney disease with heart failure and stage 1 through stage 4 chronic kidney disease, or unspecified chronic kidney disease; I50.32 Chronic diastolic (congestive) heart failure; R78.81 Bacteremia; N17.9 Acute kidney failure, unspecified; C22.9 Malignant neoplasm of liver, not specified as primary or secondary; D68.9 Coagulation defect, unspecified; J90 Pleural effusion, not elsewhere classified; L97.418 Non-pressure chronic ulcer of right heel and midfoot with other specified severity; L98.418 Non-pressure chronic ulcer of buttock with other specified severity; L97.528 Non-pressure chronic ulcer of other part of left foot with other specified severity; R62.7 Adult failure to thrive; D70.9 Neutropenia, unspecified; D63.8 Anemia in other chronic diseases classified elsewhere; K74.60 Unspecified cirrhosis of liver; E86.0 Dehydration; B95.5 Unspecified streptococcus as the cause of diseases classified elsewhere; B95.2 Enterococcus as the cause of diseases classified elsewhere; I48.0 Paroxysmal atrial fibrillation; E78.5 Hyperlipidemia, unspecified; N40.1 Benign prostatic hyperplasia with lower urinary tract symptoms; D50.9 Iron deficiency anemia, unspecified; R33.8 Other retention of urine; N18.30 Chronic kidney disease, stage 3 unspecified; I25.10 Atherosclerotic heart disease of native coronary artery without angina pectoris; T45.511A Poisoning by anticoagulants, accidental (unintentional), initial encounter; K80.20 Calculus of gallbladder without cholecystitis without obstruction; K59.00 Constipation, unspecified; R53.81 Other malaise; Z68.23 Body mass index [BMI] 23.0-23.9, adult; Z95.2 Presence of prosthetic heart valve; Z89.412 Acquired absence of left great toe; Z89.421 Acquired absence of other right toe(s)
CPT/HCPCS: 36415; 36569; 71045; 71046; 71260; 74019; 74178; 76705; 80048; 80053; 81001; 82105; 82550; 82607; 82746; 83540; 83735; 83880; 84466; 84484; 85025; 85045; 85610; 85730; 87040; 87071; 87086; 87186; 87205; 93005; 93306; 99252; 99284; J0696; J1756; J2470; J3373; J3430; J7030; J7040; J7050; Q9967